=== PATIENT | female | born 1985 | race Caucasian/White ===

== ENCOUNTER 2020-02-21 08:21 | Emergency (ER) | payer OTHER ==
[~2020-02-21] VITALS: Ht 162.6 cm; Wt 88.8 kg
[2020-02-21 08:22] VITALS: BP 120/67
[2020-02-21] MEDS ORDERED: PSEU120T19 PO (08:31)
[2020-02-21] MEDS ORDERED: ACET-838 PO (08:31)
[2020-02-21] MEDS ORDERED: AZIT-12 PO (09:25)
== END 2020-02-21 09:34 | disposition home or self-care (01) ==
LOC: M ED 08:21
DX: J01.90 Acute sinusitis, unspecified (principal); Z88.0 Allergy status to penicillin; Z88.6 Allergy status to analgesic agent; Z79.899 Other long term (current) drug therapy
CPT/HCPCS: 99283; U0003

== ENCOUNTER 2020-04-05 13:47 | Outpatient (CLI) | payer OTHER ==
[~2020-04-05] VITALS: Ht 162.6 cm; Wt 88.5 kg
[~2020-04-05 13:47] MED LIST: ACET-838 PO; AZIT-12 PO; PSEU120T19 PO
[2020-04-05 14:05] VITALS: BP 106/61
[2020-04-05] MEDS ORDERED: PRENTAB9 PO (14:12)
[2020-04-05] MEDS ORDERED: TERBUTALINE SULFATE 1 MG/ML VIAL (J3105) SC ONE (14:45)
[2020-04-05 14:59] VITALS: BP 140/85
--- NOTE | 2020-04-05 15:37 | IPNPDOC ---
Obstetrical Progress Note Date of Service Apr 05, 2020 Subjective 35 YO @ 37+1 by LMP who has a known breech presentation and presents for ECV. She reports irregular contractions, denies any decreased movements, LOF or VB. she was been NPO for 8 hrs. On my exam today US: head was to maternal fundal right, back was up to the left side and buttons towards the cervix. MVP 5.5cm, Posterior placenta was noted. Reactine NST was obtained before the procedure. Procedure Patient was consented and was then allowed to empty her bladder, anesthesia was notified and the OR was placed on Standby. she was then given 0.25mg of terbuline and the monitoring device removed. surgicall gell was then placed on the patient's abdomen and external cephalic version started. the buttons was elevated from the pelvic and the head turned in counter clockwise fashion while pushing the buttocks cephalad. two attemps were done. the heart rate was checked between attempts and was noted to be normal. after the second attempts, head found cephalic. again normal heart rate @ 150 at the end of the procedure. After the procedure Patient was then placed on the monitor for 30 min and the NST Remained reactive. no contractions were noted after the procedure. Patients Vitals were normal. Patient was then given an abdominal binder and was D/C home with plan to F/U in clinic next week. -she was given strict return precautions. Objective Vital Signs Date Time Temp Pulse Resp B/P (MAP) Pulse Ox O2 Delivery O2 Flow Rate FiO2 04/05/20 14:05 98.7 84 20 106/61 (76) 98 Room Air Assessment Heart Rate (FHR): 150 Variability: Moderate Accelerations: Positive Decelerations: None Heart Rate Tracing: Category I Tocometer Frequency: irregular Sterile Vaginal Examination Postion/Presentation: Cephalic presentation (aftter ECV) Assessment and Plan Weeks & Days 37+1 Status: Reassuring Group B Streptococcus: Unknown Anticipate: Vaginal Delivery (after 39 weeks) NIKKIE CLEMENTS MD Apr 05, 2020 15:36
[2020-04-05 15:48] VITALS: BP 100/56
== END 2020-04-05 16:15 | disposition home or self-care (01) ==
LOC: M LDO 13:47
PROVIDERS: ATTEND Obstetrics & Gynecology
DX: O32.1XX0 Maternal care for breech presentation, not applicable or unspecified (principal); Z3A.37 37 weeks gestation of pregnancy
CPT/HCPCS: 59025; 59412; G0378; G0463; J3105

== ENCOUNTER 2020-04-14 18:16 | Inpatient (IN) | payer OTHER ==
[~2020-04-14] VITALS: Ht 162.6 cm; Wt 89.5 kg
[2020-04-14] VITALS (9 sets, daily range): BP systolic 88–133; BP diastolic 55–78
[~2020-04-14 18:16] MED LIST changes: +PRENTAB9 PO
--- NOTE | 2020-04-14 18:47 | IPNPDOC ---
Text Note Date of Service The patient was seen on 04/14/20. NOTE 04/14/20 1843 pm seen with contractions 6 minutes apart no show no discharge. RECENT VERSION TO VERTEX . EXAMINATION MONDAY 4 CM -3 STATION 50% EFFACED . EXAMINATION 4 CM [id number] STATION 60% EFFACED CATAGORY 1 STRIP . PLAN REVIEW PROGRESS 1 HOUR IF NO CHANGE DISCHARGE UNDELIVERED IF ACTIVE ADMIT VS,Fishbone, I+O VS, Fishbone, I+O Vital Signs Date Time Temp Pulse Resp B/P (MAP) Pulse Ox O2 Delivery O2 Flow Rate FiO2 04/14/20 18:30 98.3 85 16 133/78 (96) 99 Room Air Karson Nails MD Apr 14, 2020 18:46
[2020-04-14] MEDS ORDERED: LR 1,000 ML IV SCH ×2 (20:22→21:04)
--- OUTSIDE RECORDS SUMMARY | 2020-04-14 20:27 | CCD ---
Author Author [facility] Address Unknown Phone Unavailable Support Name Relationship Address Phone [facility] Next Of Kin [address] [place] [address] Unavailable KELLY CRUZ Next Of Kin [id number] [place] [address] Re-disclosure Warning The records that you are about to access may contain information from federally-assisted alcohol or drug abuse programs. If such information is present, then the following federally mandated warning applies: This information has been disclosed to you from records protected by federal confidentiality rules (42 CFR part 2). The federal rules prohibit you from making any further disclosure of this information unless further disclosure is expressly permitted by the written consent of the person to whom it pertains or as otherwise permitted by 42 CFR part 2. A general authorization for the release of medical or other information is NOT sufficient for this purpose. The Federal rules restrict any use of the information to criminally investigate or prosecute any alcohol or drug abuse patient.The records that you are about to access may contain highly sensitive health information, the redisclosure of which is protected by Article 27-F of the [facility] Public Health law. If you continue you may have access to information: Regarding HIV / AIDS; Provided by facilities licensed or operated by the [facility] Office of Mental Health; or Provided by the [facility] Office for People With Developmental Disabilities. If such information is present, then the following [facility] mandated warning applies: This information has been disclosed to you from confidential records which are protected by state law. State law prohibits you from making any further disclosure of this information without the specific written consent of the person to whom it pertains, or as otherwise permitted by law. Any unauthorized further disclosure in violation of state law may result in a fine or prison sentence or both. A general authorization for the release of medical or other information is NOT sufficient authorization for further disc losure. Insurance Providers Payer name Policy type / Coverage type Policy ID Covered green party ID Covered green party's relationship to olguin Policy Olguin Plan Information [facility] ACTIVE DUTY [id number] Results ID Date Data Source [id number] 02/21/2020 09:30:00 AM EST [facility] Name Value Range Interpretation Code Description Data Laisha rce(s) Supporting Document(s) SARS coronavirus 2 RNA [facility] This lab was ordered by [facility] and reported by [facility]. Procedure
[2020-04-14] MEDS ORDERED: OXYTOCIN 30 UNITS IN 0.9% NaCl 500ML IV BAG (J2590) As Ordered ONE (20:30)
[2020-04-14] MEDS ORDERED: LACTATED RINGER'S 1000 ML IV ONE (20:30)
[2020-04-14 20:50] LABS: CORD GAS ABE V -4.2; CORD GAS HCO3 V 21.6 MEQ/L; CORD GAS O2 SAT V 74.6 %; CORD GAS PCO2 V 42.1 mmHg; CORD GAS PH V 7.328 UNITS; CORD GAS SBC V 20.5 MEQ/L; CORD GAS TCO2 V 22.9 MEQ/L
[2020-04-14 20:51] LABS: CORD GAS ABE A -2.8; CORD GAS HCO3 A 27.2 MEQ/L; CORD GAS O2 SAT A 30.9 %; CORD GAS PCO2 A 71.4 mmHg; CORD GAS PH A 7.198 UNITS; CORD GAS PO2 A 17.8 mmHg; CORD GAS SBC A 20.5 MEQ/L; CORD GAS TCO2 A 29.3 MEQ/L
[2020-04-14] MEDS ORDERED: DOCUSATE SODIUM 100MG CAPSULE PO PRN (21:15)
[2020-04-14] MEDS ORDERED: ACETAMINOPHEN TAB 650MG DOSE (2X325MG) PO PRN (21:15)
[2020-04-14] MEDS ORDERED: METHYLERGONOVINE MALEATE 0.2 MG TAB PO PRN (21:15)
[2020-04-14] MEDS ORDERED: IBUPROFEN 600MG TAB PO PRN (21:15)
[2020-04-14] MEDS ORDERED: ANUSOL HC CREAM 30GM TOP PRN (21:15)
[2020-04-14] MEDS ORDERED: ACETAMINOPHEN 500 MG TAB PO PRN (21:15)
[2020-04-14] MEDS ORDERED: OXYTOCIN DRIP 30 UNITS in IV 1 EA IV ONE (21:15)
[2020-04-14] MEDS ORDERED: RHOGAM 300 MCG (1500 IU) INJ (J2790) IM SCH (21:15)
[2020-04-14] MEDS ORDERED: DIBUCAINE 1% OINTMENT 30GM TOP PRN (21:15)
[2020-04-14] MEDS ORDERED: OXYTOCIN INJ 10 UNITS/ML VIAL (J2590) IM ONE (21:15)
[2020-04-14] MEDS ORDERED: MOM 30ML SUSPENSION UDC PO PRN (21:15)
[2020-04-14] MEDS ORDERED: MEASLES,MUMPS,RUBELLA VACCINE INJ (MMR-II) (90707) SC SCH (21:15)
--- NOTE | 2020-04-14 21:39 | HPEPDOC ---
Obstetrical History & Physical General Date of Admission Apr 14, 2020 at 20:24 Primary Care Physician: Karson Nails MD History of Present Illness 04/14/20 [facility] 8-9 CM FULLY EFFACED VERTEX CATEGORY 1 STRIP Chief Complaint: Contractions, term Information Provided By: Patient Age: 34 : 4 Term: 2 Pre-term: 0 Abortions: 1 Livin Care Care: Good Care Number of Visits: 7 Dating Final EDC: Apr 25, 2020 Final EDC for Daily Update: Apr 25, 2020 Final EDC by: LMP LMP: July 20, 2019 1st Trimester Date: Sep 12, 2019 Weeks + Days: 8.2 Estimated Date of Confinement: Apr 25, 2020 EGA at Admission: 38.3 Antepartum Course Diagnos(e)s HISTORY PTL AND VERSION 1 WEEK AGO Height (inches): 64 Pre- weight (lbs.): 183 Admission Weight (lbs.): 197 Change in Weight (lbs.): 14 Past Medical History Past Obstetrical History #1: Past Obstetrical History: Multigravida Date of Delivery: Jun 03, 2016 Gestation: 38 Type of Delivery: Spontaneous Vaginal Del. Sex of Infant: Male Weight of (grams): 3345 Complications: Yes (RETAINED PLACENTA MANUAL REMOVAL) Past Obstetrical History #2: Past Obstetrical History: Multigravida Date of Delivery: May 21, 2018 Gestation: 34.4 Type of Delivery: Spontaneous Vaginal Del. Sex of : Female Weight of (grams): 3455 Complications: No WAITER/WAITRESS THIRD CLASS History: Spontaneous (07/16/2015 6 WEEKSSPONTANOUS ) Past Medical History Medical History NON CONTRIBUTORY Surgical History: Other (TOE SURGERY) Family History Significant Family History: Cancer (DIABETES, HEART DISEASE, COLON CANCER , ALZHEIMER'S ANXIETY DEPRESSION ) Social History Social history NON SMOKER NO ETOH NO VAPING NO RECREATIONAL DRUGS Marital Status: Family situation: Spouse/partner home Psychosocial History: No pertinent psych hx * Smoker: non-smoker Alcohol: Denies Drugs: denies Abuse Violence Screening Have you been hit/kicked/slapp: No Have you been sexually assault: No Imunizations Tdap status: current Influenza Status: current Allergies Coded Allergies: Penicillins (Verified Allergy, Unknown, hives, 02/21/20) codeine (Verified Allergy, Unknown, hives, 02/21/20) Medications Scheduled No.137/Iron/Folic Acd ( Vitamin Tablet) 1 Each Tablet, 1 TAB PO DAILY Physical Examination Physical Examination GENERAL: Alert and oriented times three. BREAST: . ABDOMEN: Gravid and non-tender to touch. FETUS: Is vertex (VTX) by sterile vaginal examination (SVE), fetus is vertex (VTX) by Gagan. HEART RATE: Regular rate and rhythm. LUNGS: Clear to auscultation (CTA). EXTREMITIES: No edema. No clonus. Deep tendon reflexes (DTRs) + . Other physical findings ACTIVE LABOR SF HEIGHT 39 CM 4 QUADRANT BS Vital Signs/I&O Vital Signs Date Time Temp Pulse Resp B/P (MAP) Pulse Ox O2 Delivery O2 Flow Rate FiO2 04/14/20 18:30 98.3 85 16 133/78 (96) 99 Room Air Laboratory Data [facility] Laboratory Tests 2 04/14/20 20:35: Serology Scanned Report Hepatitis B Testing 04/14/20 20:42: Cord Arterial Blood pH 7.198, Cord Arterial Blood PCO2 71.4, Cord Arterial Blood PO2 17.8, Cord Arterial Blood HCO3 27.2, Cord Arterial Blood Total CO2 29.3, Cord Arterial Blood Base Excess -2.8, Cord Arterial Base Excess (Standard 20.5, Cord Arterial Bld Oxygen Saturation 30.9, Cord Venous Blood pH 7.328, Cord Venous Blood PCO2 42.1, Cord Venous Blood PO2 33.0, Cord Venous Blood HCO3 21.6, Cord Venous Blood Total CO2 22.9, Cord Venous Base Excess (Actual) -4.2, Cord Venous Base Excess (Standard) 20.5, Cord Venous Blood Oxygen Saturation 74.6 Pertinent Laboratoy Data Blood Type: A+ RBC Antibody Screen: Negative HIV: Negative Hepatitis B: Negative Rapid Plasma Reagin: Nonreactive Varicella: Immune Chlamydia/Gonorrhea: Negative Group B Streptococcus: Negative Cystic Fibrosis: Negative Anatomy Ultrasound Placenta Location: Anterior Normal Anatomy: Yes Placenta Previa: No Steroid Therapy Steroid Therapy: No Vaginal Examination Dilation: 8 cm Effacement: 90% Station: -1, 0 Cervical Consistency: Soft Cervical Position: Anterior Presentation: Cephalic presentation Position: Vertex (occiput) Assessment Variability: Moderate Accelerations: Present Decelerations: None Tocometer Contractions: Yes Frequency: regular Duration: greater than 60 seconds Strength: palpated as moderate Assessment/Plan Assessment 34-year-old (G)4 para (P) 2 at 38.3 weeks by 8.2 -week ultrasound. Presents to Labor and Delivery (L&D) . Plan Admit and orient. Manager Internship and consent. Diet: NPO Group B Streptococcus (GBS) [negative]. Labs and intravenous (IV) per unit protocol. Counseled on Pitocin POST DELIVERY Lactated Ringers (LR): Bolus 1000 mL, then at 125 mL/hr. Anticipate [normal spontaneous delivery ()]. C-S as appropriate. Labor and Delivery Counseling REVIEWED PRECIPITATE DELIVERY NO TIME FOR EPIDURAL REVIEWED PITOCIN FOR ATONIC UTERUS AND REPAIR OF VAGINAL LACERATIONS POST DELIVERY. PLAN START IV READY FOR IV MEDS Karson Nails MD Apr 14, 2020 21:36
--- NOTE | 2020-04-14 21:43 | DNPDOC ---
[facility] Delivery Note Delivery Note DATE OF DELIVERY: 04/14/20 PREDELIVERY DIAGNOSIS: 38.3 weeks' gestation and labor. POST DELIVERY DIAGNOSIS: Delivered. PROCEDURE: [Spontaneous vaginal delivery. WEARING APPAREL SHAKER: Dr. Atiya FERRIS ANESTHESIA: NONE. ESTIMATED BLOOD LOSS: 250 mL. FINDINGS: 8 pound 2 ounce MALE , Score 9/9 , nuchal cord 0. DELIVERY SUMMARY: Patient is a 34 -year-old 4 now para 3 who was admitted to labor and delivery for INTACT PERINEUM FIRST DEGREE REPAIRED SPONTANEOUS PLACENTA COMPLETE UTERUS CONTRACTED DOWN UNDER Karson Avendano MD Apr 14, 2020 21:43
[2020-04-14 21:55] LABS: HEMATOCRIT 36.1 % (36.0-47.0); HEMOGLOBIN 11.5 g/dl (12.0-15.5); MEAN CORPUSCULAR HEMOGLOBIN 28.4 pg (27.0-33.0); MEAN CORPUSCULAR HGB CONC 31.9 g/dl (32.0-36.5); MEAN CORPUSCULAR VOLUME 89.1 fl (80.0-96.0); PLATELET COUNT, AUTOMATED 183 10^3/uL (150-450); RED BLOOD COUNT 4.05 10^6/uL (4.00-5.40); WHITE BLOOD COUNT 15.5 10^3/uL (4.0-10.0)
[2020-04-14 22:20] LABS: ALT/SGPT 16 U/L (12-78); BILIRUBIN,TOTAL 0.4 MG/DL (0.2-1.0); CREATININE FOR GFR 0.71 MG/DL (0.55-1.30); GLOMERULAR FILTRATION RATE > 60.0 (>60); LDH LACTATE DEHYDROGENASE 162 U/L (84-246); URIC ACID 3.8 MG/DL (2.6-6.0)
[2020-04-14] MEDS ORDERED: OXYTOCIN INJ 10 UNITS/ML VIAL (J2590) As Ordered ONE ×2 (22:34→22:35)
[2020-04-15 05:36] VITALS: BP 105/70
[2020-04-15] MEDS: PRENATAL VITAMINS CHEWABLE TABLET PO SCH (07:33)
[2020-04-15] MEDS: IBUPROFEN 800 MG TAB PO PRN ×2 (07:34→17:47)
--- NOTE | 2020-04-15 10:16 | IPN ---
PROGRESS NOTE DATE: 04/15/2020 SUBJECTIVE: This is a 35-year-old 4, now para 3, admitted in active labor at 38 and 3 weeks gestation. Had a precipitous spontaneous vaginal delivery of a male infant, 8 pounds 2 ounces (3680 grams). Apgars of 9 and 9 at one and five minutes respectively. Arterial pH 7.19, base excess -2.8; venous pH 7.32, base excess -4.2. She was apparently supposed to have a cervical polyp; however, we were not able to demonstrate that. She had a first-degree tear, which was repaired in the usual fashion. OBJECTIVE: On her first day, her blood pressure 105/70, respirations 16, pulse 79, temperature 98.0. LABORATORY DATA: Her admitting hemoglobin 11.5, hematocrit 36.1, and platelets were 183,000. PLAN: For discharge tomorrow morning. Follow-up six weeks at [facility]. Medications to be dispensed at [facility]. All questions were answered. The patient is presently attempting to breastfeed, is voiding, is passing gas, and is adequately managed by ibuprofen for her pain.
[2020-04-15 17:59] VITALS: BP 114/67
[2020-04-16] MEDS: IBUPROFEN 800 MG TAB PO PRN ×2 (02:38→12:23)
[2020-04-16 05:56] VITALS: BP 122/59
[2020-04-16] MEDS ORDERED: ACET-683 PO (07:08)
[2020-04-16] MEDS ORDERED: IBUP80TA PO (07:08)
--- NOTE | 2020-04-16 07:11 | DS.PDOC ---
Discharge Summary General Date of Admission Apr 14, 2020 at 20:24 Date of Discharge Apr 16, 2020 Discharge Summary HOSPITAL COURSE: Ms. Newman is a 35 yo G4 now P3 who underwent an uncomplicated on 14Apr2020 after being admitted for active labor. Her course was unremarkable. On her day of discharge she met all appropriate discharge criteria. She was ambulating, voiding, tolerating a regular diet, and had minimal lochia. DISCHARGE MEDICATIONS: Please see below. ALLERGIES: Please see below. PHYSICAL EXAMINATION ON DISCHARGE: VITAL SIGNS: Please see below. GENERAL: AAOX3, NAD ABDOMINAL EXAMINATION: Fundus firm at U-2. No fundal tenderness EXTREMITIES: No edema PSYCHIATRIC EXAMINATION: Affect appropriate LABORATORY DATA: Please see below. ACTIVITY: Pelvic rest for 6 weeks DIET: Regular DISCHARGE PLAN: Discharge home DISPOSITION: Discharge home on 16Apr2020. DISCHARGE INSTRUCTIONS: 1. Nothing in the vagina for 6 weeks ITEMS TO FOLLOWUP ON ON OUTPATIENT: 1. Call to schedule a visit for 6 weeks post delivery DISCHARGE CONDITION: Stable. TIME SPENT ON DISCHARGE: Greater than 20 minutes. Emilio Michaels DO Vital Signs/I&Os Vital Signs Date Time Temp Pulse Resp B/P (MAP) Pulse Ox O2 Delivery O2 Flow Rate FiO2 04/16/20 05:56 96.9 83 18 122/59 (80) 04/15/20 05:36 97 Room Air Discharge Medications Scheduled No.137/Iron/Folic Acd ( Vitamin Tablet) 1 Each Tablet, 1 TAB PO DAILY, (Reported) Scheduled PRN Acetaminophen (Acetaminophen) 500 Mg Tablet, 1,000 MG PO Q6HP PRN for PAIN LEVEL 6-10 Ibuprofen (Ibuprofen) 800 Mg Tablet, 800 MG PO Q8HP PRN for PAIN LEVEL 6-10 Allergies Coded Allergies: Penicillins (Verified Allergy, Unknown, hives, 02/21/20) codeine (Verified Allergy, Unknown, hives, 02/21/20) EMILIO MICHAELS DO Apr 16, 2020 07:11
[2020-04-16] MEDS: PRENATAL VITAMINS CHEWABLE TABLET PO SCH (09:00)
== END 2020-04-16 12:57 | disposition home or self-care (01) | DRG 807 ==
LOC: M LDO 18:16 → M LDI 20:24 → M OBS 23:09
PROVIDERS: ADMIT Obstetrics & Gynecology; ATTEND Obstetrics & Gynecology
PROC: 10E0XZZ Delivery of Products of Conception, External Approach (ICD-10-PCS; principal; 2020-04-14)
PROC: 0HQ9XZZ Repair Perineum Skin, External Approach (ICD-10-PCS; 2020-04-14)
DX: O62.3 Precipitate labor (principal); Z37.0 Single live birth; Z3A.38 38 weeks gestation of pregnancy; O70.0 First degree perineal laceration during delivery